=== PATIENT | female | born 1960 | race African-American/Black ===

== ENCOUNTER 2018-03-13 11:19 | Emergency (ER) | payer MEDICAID, OTHER ==
[~2018-03-13] VITALS: Ht 170.2 cm; Wt 95.3 kg
[2018-03-13] MEDS ORDERED: KETOROLAC TROMETH 60MG/2ML VIAL IM ONE (14:15)
[2018-03-13 14:36] VITALS: BP 133/77
== END 2018-03-13 15:11 | disposition home or self-care (01) ==
LOC: ER 11:19
DX: M54.5 Low back pain (principal); M25.531 Pain in right wrist; I10 Essential (primary) hypertension; V43.52XA Car driver injured in collision with other type car in traffic accident, initial encounter; Y93.89 Activity, other specified; Y99.8 Other external cause status; Y92.410 Unspecified street and highway as the place of occurrence of the external cause
CPT/HCPCS: 72100; 73110; 96372; 99283; J1885